=== PATIENT | female | born 1955 | race Caucasian/White ===

== ENCOUNTER 2017-02-23 05:49 | Day surgery (SDC) | payer OTHER ==
--- NOTE | 2017-02-18 23:48 | GHP ---
[f rep st] PREOP HISTORY AND PHYSICAL DATE OF ADMISSION: 02/23/2017 COMPLAINT: Left elbow pain. HISTORY OF PRESENT ILLNESS: The patient is a 61-year-old female with chronic tenderness in the left lateral condyle. She has tried injections in the past, which have not alleviated her symptomatolog y, as well as using bracing and physical therapy, which have not gained her relief to this point. S he wishes to have surgery to resolve the problem. ALLERGIES: Include Celebrex and naproxen. MEDICATIONS: Include biotin, fish oil, Prempro, trazodone. PRIOR MEDICAL PROBLEMS: Include arthritis and rheumatoid arthritis. PRIOR SURGERY: Includes x2, and an appendectomy. SOCIAL HISTORY: She is not a smoker, and uses moderate amount of alcohol. PHYSICAL EXAM: HEENT: Pupils round, reactive to light. CHEST: Clear to auscultation. HEART: Re gular rate and rhythm. ABDOMEN: Soft and nontender. EXTREMITIES: Examination the left elbow reve als full range of motion, no significant restriction in flexion and extension, with tenderness of th e lateral condyle and the superior portion of the medial epicondyle. She has pain to resisted wrist extension and to middle finger extension with an extended elbow. ASSESSMENT AND PLAN: The patient is status post left lateral epicondylitis. Options were discussed with the patient to include continued conservative measures versus operative treatment. She opted for operative treatment. She will therefore go to the operating room, and undergo a left lateral ep icondylectomy. /[id number]/MODL
[2017-02-23] MEDS ORDERED: LIDOCAINE 1% 2 ML INJ ONE (06:07)
[2017-02-23] MEDS ORDERED: fentaNYL 100 MCG/2 ML INJ ONE (06:25)
[2017-02-23] MEDS ORDERED: PROPOFOL 200 MG/20 ML VIAL ONE (06:25)
[2017-02-23] MEDS ORDERED: ONDANSETRON 4 MG/2 ML VIAL ONE (06:25)
[2017-02-23] MEDS ORDERED: DEXAMETHASONE 4 MG/ML VIAL ONE (06:25)
[2017-02-23] MEDS ORDERED: LIDOCAINE 1% 2 ML INJ ID PRN (06:38)
[2017-02-23] MEDS ORDERED: LR 1,000 ML IV ONE (06:38)
[2017-02-23] MEDS ORDERED: POLYMYXIN B SULFATE 500,000 UNIT/10 ML SYR IRR ONE (06:54)
[2017-02-23] MEDS ORDERED: BUPIVACAINE/EPI 0.5% 30 ML SDV ONE ×2 (06:54→06:59)
[2017-02-23] MEDS ORDERED: MIDAZOLAM 2 MG/2 ML VIAL IVP ONE (07:01)
--- NOTE | 2017-02-23 07:01 | PDANEPAE ---
ANE History of Present Illness 61 year old female presents for left lateral elbow tenotomy. ANE Past Medical History - Cardiovascular History Hx Hypertension: No Hx Arrhythmias: No Hx Chest Pain: No Hx Coronary Artery / Peripheral Vascular Disease: No Hx CHF / Valvular Disease: No Hx Palpitations: No - Pulmonary History Hx COPD: No Hx Asthma/Reactive Airway Disease: No Hx Recent Upper Respiratory Infection: No Hx Oxygen in Use at Home: No Hx Sleep Apnea: No Sleep Apnea Screening Result - Last Documented: Negative - Neurologic History Hx Cerebrovascular Accident: No Hx Seizures: No Hx Dementia: No - Endocrine History Hx Diabetes: No Hypothyroid: No Hyperthyroid: No Obesity: no Endocrine History Comment: HYPOGLYCEMIC - Renal History Hx Renal Disorders: No - Liver History Hx Hepatic Disorders: No - Neurological & Psychiatric Hx Hx Neurological and Psychiatric Disorders: No - Cancer History Hx Cancer: Yes Cancer History Comment: MELANOMA BACK - Congenital Disorder History Hx Congenital Disorders: No - GI History GERD: no Hx Gastrointestinal Disorders: No - Other Health History Other Health History: NEG - Chronic Pain History Chronic Pain: Yes (L ELBOW & HEEL ACHILLES R) - Surgical History Prior Surgeries: C SECTION X2. APPENDECTOMY. MELANOMA ON BACK X3 ANE Review of Systems - Exercise capacity Exercise capacity: >=4 METS METS (RN): 6 METS ANE Patient History - Allergies Allergies/Adverse Reactions: naproxen Allergy (Intermediate, Verified 02/16/17 14:30) HEADACHE latex Allergy (Verified 02/23/17 06:33) Rash - Home Medications Home medications: home medication list seen and reviewed, over the counter medications & supplements Home Medications: Herbals/Supplements -Info Only 02/16/17 [Last Taken 02/20/17 08:00] Prempro 0.3 mg-1.5 mg Tablet 02/16/17 [Last Taken 02/22/17 0800] Trazodone HCl 02/16/17 [Last Taken 02/22/17 2130] - NPO status NPO Status: no food or drink >8 hours NPO Since - Liquids (Date): 02/22/17 NPO Since - Liquids (Time): 20:00 NPO Since - Solids (Date): 02/22/17 NPO Since - Solids (Time): 20:00 - Anes Hx Anes Hx: no prior problems - Smoking Hx Smoking Status: Former smoker - Alcohol Use Alcohol Use: Occasionally - Family Anes Hx Family Anes Hx: neg - N/A Family Hx Anesthesia Complications: NEG ANE Labs/Vital Signs - Vital Signs Vital Signs: reviewed preoperatively; see RN documention for details Blood Pressure: 127/77 Heart Rate: 70 Respiratory Rate: 16 O2 Sat (%): 95 Height: 152.4 cm Weight: 51.256 kg ANE Physical Exam - Airway Mallampati Score: Class 1 Mouth exam: abnormal chin (Short thyro-mental distance) - Pulmonary Pulmonary: no respiratory distress - Cardiovascular Cardiovascular: regular rate and rhythym - ASA Status ASA Status: I ANE Anesthesia Plan Anesthesia Plan: general endotracheal anesthesia (Plan for LMA with ET tube for back-up), GA w LMA
[2017-02-23] MEDS: ceFAZolin 2 GM/DEXTROSE 100 ML IV ONE ×2 (07:12→07:21)
--- NOTE | 2017-02-23 07:14 | PDHPUP ---
History & Physical Update H&P update statement: This history and physical update is based on an assessment of the patient which was completed after admission or registration (within 24 hours), but prior to the surgery/procedure. H&P update: H&P reviewed & patient examined, no change in patient's condition since H&P completed
[2017-02-23] MEDS ORDERED: MEPERIDINE 25 MG/ML SYR IVP PRN (07:55)
[2017-02-23] MEDS ORDERED: fentaNYL 100 MCG/2 ML INJ IVP PRN (07:55)
[2017-02-23] MEDS ORDERED: HYDROCODONE/APAP 5/325 TAB PO PRN (07:55)
[2017-02-23] MEDS ORDERED: NALOXONE HCL 0.4 MG/ML INJ IVP PRN (07:55)
[2017-02-23] MEDS ORDERED: LR 500 ML IV PRN (07:55)
[2017-02-23] MEDS ORDERED: ONDANSETRON 4 MG/2 ML VIAL IVP PRN (07:55)
[2017-02-23] MEDS ORDERED: OXYCODONE/APAP 5/325 TAB PO PRN (08:18)
--- NOTE | 2017-02-23 08:18 | POSTOPPROG ---
Post Op Note Date of Operation: 02/23/17 Surgeon: Adriana Vieira Anesthesia: LMA Pre-op Diagnosis: l lat epicondylitis Procedure: l lat epicondylectomy Inf/Abcess present in the surg proc area at time of surgery?: No Depth: Deep Incisional (Fascial) EBL: 50-100
[2017-02-23 10:18] VITALS: BP 133/85; PULSE 67; RESP 16; TEMP 97.7; O2SAT 96
[2017-02-23] MEDS ORDERED: KETOROLAC 15 MG/1 ML SDV IVP SCH (12:00)
--- NOTE | 2017-02-23 12:41 | GOP ---
[f rep st] OPERATIVE REPORT DATE OF OPERATION: 02/23/2017 SURGEON: Adriana Vieira MD ANESTHESIA: LMA. PREOPERATIVE DIAGNOSIS: Left lateral epicondylitis. POSTOPERATIVE DIAGNOSIS: Left lateral epicondylitis. PROCEDURE PERFORMED: Left lateral epicondylectomy. FINDINGS: INDICATIONS: This is a 61-year-old female with a long history of left elbow pain, worsening with us e and with time despite multiple conservative measures. She wishes to have surgery in order to reso lve the problem. DESCRIPTION OF PROCEDURE: Patient brought to the operating room after the left side had been identi fied as the correct side by the patient, nurse, and physician. Once in the operating room, she was placed under general anesthesia using an LMA. Once asleep, a tourniquet was placed around the upper portion of the left arm with the left upper extremity sterilely prepped and draped in the usual fas hion using GSI solution. Once prepped and draped, the limb was exsanguinated, tourniquet inflated t o 250 mmHg. A linear incision was made on the lateral portion of the elbow, with sharp dissection c arried down through the skin and subcutaneous layers, identifying the extensor attachment onto the l ateral condyle. The fascia was split in line with its fibers. Sharp dissection was carried to deta ch the fibers off the lateral condyle. The bony portion of the lateral condyle was then debrided of inflammatory tissue and excess bone using a rongeur. Once completed, the wound was thoroughly irri gated with antibiotic solution, was closed in layers with 3-0 Vicryl suture in an inverted interrupt ed stitch to close the fascia associated with the extensor mechanism, 3-0 Vicryl suture for the subc utaneous layers, and a 3-0 V-Loc suture in a running subcuticular stitch for the skin. 8 cc of Jeff priya was infused around the actual level itself. Tourniquet was released at 15 minutes. The elbow was dressed with Steri-Strips, Xeroform, 4 x 4, Webril. The arm was completely undraped in the oper ating room, tourniquet removed from the arm, and an Abram wrap placed around the elbow. She was then woken up, extubated, transferred onto a stretcher, and sent to recovery room in good condition. TOURNIQUET TIME: 15 minutes. /[id number]/MODL
== END 2017-02-23 10:32 | disposition home or self-care (01) ==
LOC: FSGY 05:49
PROVIDERS: ATTEND Orthopaedic Surgery
PROC: 0L840ZZ Division of Left Upper Arm Tendon, Open Approach (ICD-10-PCS; principal; 2017-02-23 07:15)
DX: M77.12 Lateral epicondylitis, left elbow (principal); Z87.891 Personal history of nicotine dependence; Z85.820 Personal history of malignant melanoma of skin; Z91.040 Latex allergy status
CPT/HCPCS: J0690; J1100; J2250; J2405; J2704; J3010